=== PATIENT | female | born 1965 | race Caucasian/White ===

== ENCOUNTER 2016-11-29 10:24 | Emergency (ER) | payer OTHER ==
[2016-11-29] MEDS ORDERED: Zofran 4 MG/2 ML VIAL IV ONE (10:46)
[2016-11-29] MEDS ORDERED: Hydromorphone 1 mg/ml Ampule IV ONE (10:46)
[2016-11-29] MEDS ORDERED: Sodium Chloride 0.9% 1000 ML 1,000 ML IV STA (10:46)
[2016-11-29] MEDS ORDERED: PROTONIX 40 MG IV IV ONE ×2 (10:46→10:52)
[2016-11-29] MEDS ORDERED: Hydromorphone 1 mg/ml Ampule ONE (10:52)
[2016-11-29] MEDS ORDERED: Zofran 4 MG/2 ML VIAL ONE (10:52)
[2016-11-29] MEDS ORDERED: Sodium Chloride 0.9% 1000 ML 1,000 ML ONE (10:52)
--- NOTE | 2016-11-29 10:54 | ERPHSYRPT ---
- History of Present Illness Time Seen by Provider: 11/29/16 10:43 Historian: patient Exam Limitations: clinical condition Patient Subjective Stated Complaint: abd pain Triage Nursing Assessment: epigastric abd pain with vomiting since 0800 this morning. radiating pain around upper abd. dry heaving and nausea. 'orange' bm this am. no food since last night. 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 urinary urgency with little output for past week--went to dr and urine test fine , followup scheduled for sunday Physician History: PATIENT WITH HISTORY OF GALL STONES COMPLAINS OF SEVERE EPIGASTRIC PAINS ASSOCIATED WITH FREQUENT EMESIS AND RADIATION OF PAIN TO HER BACK, ONSET AT 1AM , ATE FAST FOOD LAST NIGHT. DENIES FEVER CHILLS, AND DIARRHEA. PATIENT ALSO COMPLAINS OF URGENCY, HAD EPISODES DYSURIA LAST WEEK. Timing/Duration: today Activities at Onset: none Quality: sharpness Abdominal Pain Onset Location: epigastric, flank Pain Radiation: back Severity of Pain-Max: moderate Severity of Pain-Current: moderate Modifying Factors: Improves With: nothing, vomiting Associated Symptoms: heartburn, loss of appetite, nausea, vomiting Previous symptoms: same symptoms as today (YEARS AGO WITH GALLSTONES) Allergies/Adverse Reactions: iron dextran complex Allergy (Verified 11/29/16 10:33) meperidine [From Demerol] Allergy (Verified 11/29/16 10:33) methylprednisolone [From Medrol] Allergy (Verified 11/29/16 10:33) morphine Allergy (Verified 11/29/16 10:33) Home Medications: Carvedilol 3.125 mg [Coreg 3.125 MG] 3.125 mg PO DAILY 11/29/16 [History] Eszopiclone [Lunesta] 1 mg PO HS 11/29/16 [History] Hydrochlorothiazide 25 mg [hydroDIURIL 25 MG] 37.5 mg PO DAILY 11/29/16 [ History] Liraglutide [Victoza 2-Jeremiah] 1.8 mg SQ DAILY 11/29/16 [History] Solifenacin Succinate [Vesicare] 10 mg PO DAILY 11/29/16 [History] Hx Tetanus, Diphtheria Vaccination/Date Given: Yes Hx Influenza Vaccination/Date Given: No Hx Pneumococcal Vaccination/Date Given: No Immunizations Up to Date: Yes - Review of Systems Constitutional: No Fever, No Chills Eyes: No Symptoms Ears, Nose, & Throat: No Symptoms Respiratory: No Symptoms, No Cough, No Dyspnea Cardiac: No Symptoms, No Chest Pain, No Edema, No Syncope Abdominal/Gastrointestinal: Abdominal Pain, Nausea, Vomiting, No Diarrhea Genitourinary Symptoms: Dysuria, Urgency, Flank Pain Musculoskeletal: No Symptoms, No Back Pain, No Neck Pain Skin: No Symptoms, No Rash Neurological: No Symptoms, No Dizziness, No Focal Weakness, No Sensory Changes Psychological: No Symptoms Endocrine: No Symptoms All Other Systems: Reviewed and Negative - Past Medical History Pertinent Past Medical History: Yes Cardiac History: Hypertension Endocrine Medical History: Diabetes Type II GI Medical History: Ulcer Female Reproductive Disorders: Endometriosis Other Medical History: gallstones - Past Surgical History Past Surgical History: Yes Cardiac: Cardiac Catheterization Gastrointestinal: Appendectomy Other Surgical History: rt shoulder. knee. ablasion uterine - Social History Smoking Status: Never smoker Exposure to second hand smoke: No Drug Use: none Patient Lives Alone: No Significant Family History: no pertinent family hx - Nursing Vital Signs Nursing Vital Signs: Initial Vital Signs Temperature 98.7 F Temperature Source Oral Pulse Rate 80 Respiratory Rate 18 Blood Pressure [Right Arm] 127/75 Pain Intensity 0 - Physical Exam General Appearance: moderate distress Eye Exam: PERRL/EOMI, eyes nml inspection Ears, Nose, Throat Exam: normal ENT inspection, pharynx normal, moist mucous membranes Neck Exam: normal inspection, non-tender, supple, full range of motion Respiratory Exam: normal breath sounds, lungs clear, No respiratory distress Cardiovascular Exam: regular rate/rhythm, normal heart sounds Gastrointestinal/Abdomen Exam: soft, normal bowel sounds, tenderness (MARKED EPIGASTRIC AND RUQ TENDERNESS), No mass Back Exam: normal inspection, normal range of motion, CVA tenderness (BILATERAL CVA TENDERNESS), No vertebral tenderness Extremity Exam: normal inspection, normal range of motion, pelvis stable Neurologic Exam: alert, oriented x 3, cooperative, normal mood/affect, nml cerebellar function, sensation nml, No motor deficits Skin Exam: normal color, warm, dry Lymphatic Exam: adenopathy SpO2 Interpretation: normal SpO2: 98 Oxygen Delivery: Room Air - Course EKG Interpreted by Me: RATE, Sinus Rhythm (RATE 80), NORMAL AXIS Ordered Tests: Active Orders 24 hr Category Date Time Status Clean Catch Urine Specimen STAT Care 11/29/16 10:46 Active EKG-ER Only STAT Care 11/29/16 10:46 Active IV Insertion STAT Care 11/29/16 10:46 Active ABDOMEN AND PELVIS W CONTRAST [CT] Stat Exams 11/29/16 10:47 Completed AMYLASE Stat Lab 11/29/16 10:45 Completed BLOOD CULTURE Stat Lab 11/29/16 10:45 Ordered CBC W DIFF Stat Lab 11/29/16 10:45 Completed CMP Stat Lab 11/29/16 10:45 Completed HCG,QUALITATIVE URINE Stat Lab 11/29/16 10:58 Completed LIPASE Stat Lab 11/29/16 10:45 Completed Manual Differential NC Stat Lab 11/29/16 10:45 Completed TROPONIN Stat Lab 11/29/16 10:45 Completed UA W/ MICROSCOPIC Stat Lab 11/29/16 10:47 Completed Medication Summary Discontinued Medications Generic Name Dose Route Start Last Admin Trade Name Freq PRN Reason Stop Dose Admin Hydromorphone HCl 2 mg 11/29/16 10:46 11/29/16 11:05 Dilaudid 1 Mg/Ml Injection IV 11/29/16 10:47 2 mg STAT ONE Administration Hydromorphone HCl Confirm 11/29/16 10:52 Dilaudid 1 Mg/Ml Injection Administered 11/29/16 10:53 Dose 2 mg .ROUTE .STK-MED ONE Sodium Chloride 1,000 mls @ 999 mls/hr 11/29/16 10:46 11/29/16 10:59 Sodium Chloride 0.9% 1000 Ml IV 11/29/16 11:46 999 mls/hr .Q1H1M STA Administration Sodium Chloride Confirm 11/29/16 10:52 Sodium Chloride 0.9% 1000 Ml Administered 11/29/16 10:53 Dose 1,000 mls @ ud .ROUTE .STK-MED ONE Ondansetron HCl 4 mg 11/29/16 10:46 11/29/16 11:03 Zofran 4 Mg/2 Ml Vial IV 11/29/16 10:47 4 mg STAT ONE Administration Ondansetron HCl Confirm 11/29/16 10:52 Zofran 4 Mg/2 Ml Vial Administered 11/29/16 10:53 Dose 4 mg .ROUTE .STK-MED ONE Pantoprazole Sodium 40 mg 11/29/16 10:46 11/29/16 10:59 Protonix 40 Mg Iv IV 11/29/16 10:47 40 mg STAT ONE Administration Pantoprazole Sodium Confirm 11/29/16 10:52 Protonix 40 Mg Iv Administered 11/29/16 10:53 Dose 40 mg IV .STK-MED ONE Lab/Rad Data: Laboratory Result Diagrams 11/29/16 10:45 11/29/16 10:45 Laboratory Results 11/29/16 11/29/16 11/29/16 Range/Units 10:58 10:47 10:45 WBC (4.0-10.5) K/mm3 RBC (4.1-5.4) M/mm3 Hgb (12.0-16.0) gm/dl Hct (35-47) % MCV (78-100) fl MCH (26-32) pg MCHC (32-36) g/dl RDW (11.5-14.0) % Plt Count (150-450) K/mm3 MPV (6-9.5) fl Segmented Neutrophils (36.0-66.0) % Band Neutrophils (0.0-2.0) % Lymphocytes (Manual) (24-44) % Monocytes (Manual) (0.0-12.0) % Differential Comment Platelet Estimate (NORMAL) Sodium 139 (136-145) mEq/L Potassium 3.9 (3.5-5.1) mEq/L Chloride 104 (98-107) mEq/L Carbon Dioxide 23.3 (21-32) mEq/L Anion Gap 15.1 H (5-15) MEQ/L BUN 19 (9-20) mg/dL Creatinine 0.73 (0.55-1.30) mg/dl Estimated GFR > 60 ML/MIN Glucose 106 (70-110) MG/DL Calcium 8.7 (8.5-10.1) mg/dL Total Bilirubin 0.8 (0.2-1.0) mg/dL AST 25 (15-37) U/L ALT 26 (12-78) U/L Alkaline Phosphatase 71 (46-116) U/L Troponin I < 0.017 (0.000-0.056) ng/ml Serum Total Protein 7.0 (6.4-8.2) gm/dL Albumin 3.5 (3.4-5.0) g/dL Amylase 77 (25-115) U/L Lipase 139 (73-393) U/L Ur Collection Type VOID Urine Color YELLOW (YELLOW) Urine Appearance CLEAR (CLEAR) Urine pH 7.5 (5-6) Ur Specific [place] 1.020 (1.005-1.025) Urine Protein TRACE (Negative) Urine Glucose (UA) NEGATIVE (NEGATIVE) mg/dL Urine Ketones NEGATIVE (NEGATIVE) Urine Nitrite NEGATIVE (NEGATIVE) Urine Bilirubin NEGATIVE (NEGATIVE) Urine Urobilinogen 0.2 (0-1) mg/dL Urine WBC (Auto) NEGATIVE (NEGATIVE) Urine RBC (Auto) NEGATIVE (0-5) Srikanth/ul Urine Microscopic WBC 0-2 (0-5) /HPF Ur Epithelial Cells MODERATE (FEW) /HPF Urine Bacteria FEW (NEGATIVE) /HPF Urine HCG, Qual NEGATIVE (Negative) Specimen Received 11-29-16 1100 11/29/16 Range/Units 10:45 WBC 8.7 (4.0-10.5) K/mm3 RBC 5.18 (4.1-5.4) M/mm3 Hgb 15.2 (12.0-16.0) gm/dl Hct 45.9 (35-47) % MCV 88.6 (78-100) fl MCH 29.3 (26-32) pg MCHC 33.1 (32-36) g/dl RDW 12.9 (11.5-14.0) % Plt Count 211 (150-450) K/mm3 MPV 10.8 H (6-9.5) fl Segmented Neutrophils 90 H (36.0-66.0) % Band Neutrophils 6 H (0.0-2.0) % Lymphocytes (Manual) 2 L (24-44) % Monocytes (Manual) 2 (0.0-12.0) % Differential Comment NORMAL Platelet Estimate NORMAL (NORMAL) Sodium (136-145) mEq/L Potassium (3.5-5.1) mEq/L Chloride (98-107) mEq/L Carbon Dioxide (21-32) mEq/L Anion Gap (5-15) MEQ/L BUN (9-20) mg/dL Creatinine (0.55-1.30) mg/dl Estimated GFR ML/MIN Glucose (70-110) MG/DL Calcium (8.5-10.1) mg/dL Total Bilirubin (0.2-1.0) mg/dL AST (15-37) U/L ALT (12-78) U/L Alkaline Phosphatase (46-116) U/L Troponin I (0.000-0.056) ng/ml Serum Total Protein (6.4-8.2) gm/dL Albumin (3.4-5.0) g/dL Amylase (25-115) U/L Lipase (73-393) U/L Ur Collection Type Urine Color (YELLOW) Urine Appearance (CLEAR) Urine pH (5-6) Ur Specific [place] (1.005-1.025) Urine Protein (Negative) Urine Glucose (UA) (NEGATIVE) mg/dL Urine Ketones (NEGATIVE) Urine Nitrite (NEGATIVE) Urine Bilirubin (NEGATIVE) Urine Urobilinogen (0-1) mg/dL Urine WBC (Auto) (NEGATIVE) Urine RBC (Auto) (0-5) Srikanth/ul Urine Microscopic WBC (0-5) /HPF Ur Epithelial Cells (FEW) /HPF Urine Bacteria (NEGATIVE) /HPF Urine HCG, Qual (Negative) Specimen Received - Progress Progress: improved Progress Note: 11/29/16 10:54 PATIENT ADMINISTERED BOLUS NORMAL SALINE 1 LITER/HR, ZOFRAN 4MG/ PROTONIX 40MG/ DILAUDID 2MG IV Counseled pt/family regarding: lab results, diagnosis, need for follow-up, rad results - Departure Time of Disposition: 12:35 Departure Disposition: Home Clinical Impression: ACUTE ABDOMINAL PAIN Condition: Stable Critical Care Time: No Referrals: ELIUD CARDENAS [Primary Care Provider] - Additional Instructions: FOLLOWUP WITH YOUR FAMILY PHYSICIAN SCHEDULE. NORCO 10/325 EVERY 4 HOURS FOR PAIN NEEDED. ZOFRAN 4MG EVERY 4 HOURS FOR NAUSEA. PEPCID 20MG TWICE DAILY FOR 2 WEEKS. RETURN TO EMERGENCY FOR INCREASING PAIN OR VOMITING. Prescriptions: Hydrocodone/APAP 10/325 mg [[place] 10/325 MG Tablet] 1 tab PO Q4H PRN PRN # 15 tablet PRN Reason: Pain Ondansetron [Zofran Odt] 4 mg PO Q4HPRN PRN #6 tab.rapdis PRN Reason: Nausea Famotidine 20 mg [Pepcid 20 MG] 20 mg PO BID #30 tablet
[2016-11-29 11:02] LABS: Mean Cell Volume 88.6 fl (78-100); Mean Corpuscular Hemoglobin 29.3 pg (26-32); Mean Platelet Volume 10.8 fl (6-9.5); Platelet Count 211 K/mm3 (150-450); Red Blood Count 5.18 M/mm3 (4.1-5.4); Red Cell Distribution Width 12.9 % (11.5-14.0); White Blood Count 8.7 K/mm3 (4.0-10.5)
[2016-11-29 11:18] LABS: ALBUMIN 3.5 g/dL (3.4-5.0); ALKALINE PHOSPHATASE 71 U/L (46-116); ANION GAP 15.1 MEQ/L (5-15); BILIRUBIN,TOTAL 0.8 mg/dL (0.2-1.0); BLOOD UREA NITROGEN 19 mg/dL (9-20); CHLORIDE 104 mEq/L (98-107); Carbon Dioxide 23.3 mEq/L (21-32); Glucose 106 MG/DL (70-110); LIPASE 139 U/L (73-393); Potassium 3.9 mEq/L (3.5-5.1); SGOT/AST 25 U/L (15-37); SGPT/ALT 26 U/L (12-78); SODIUM 139 mEq/L (136-145)
[2016-11-29 11:19] LABS: TROPONIN < 0.017 ng/ml (0.000-0.056)
[2016-11-29 11:22] LABS: BAND 6 % (0.0-2.0); Platelet Estimate NORMAL (NORMAL); Total Cells Counted 100
[2016-11-29 11:22] LABS: COMPLETE URINE MICROSCOPIC? YES; Collection Type VOID; Ph 7.5 (5-6)
[2016-11-29 11:24] LABS: Bacteria FEW /HPF (NEGATIVE); Epithelial Cells MODERATE /HPF (FEW); WBC 0-2 /HPF (0-5)
--- NOTE | 2016-11-29 12:03 | XRAY ---
Indication: Abdominal pain. Multiple contiguous axial images obtained through the abdomen and pelvis using 80 cc Isovue 370 contrast only as ordered. Comparison: August 05, 2011. Lung bases are clear. Heart is not enlarged. Noncontrasted stomach and bowel loops appear nonobstructed. Stomach, small bowel, and right hemicolon are now mildly fluid distended with some fluid leveling, ileus versus gastroenterocolitis. Again previous appendectomy and cholecystectomy. There is now tiny cul-de-sac fluid presumed ruptured/leaking cyst. There is again a 3.2 cm right lobe hepatic lesion. It demonstrates enhancement characteristics favoring hemangioma. Remaining liver, pancreas, spleen, adrenal glands, kidneys, ureters, bladder, uterus, and aorta appear unremarkable. No pathologic retroperitoneal lymphadenopathy. Osseous structures intact again with mild degenerative changes throughout the spine and levorotoscoliosis centered at the L1-L2 level. Impression: 1. Fluid distended stomach and bowel loops with fluid leveling. Rule out ileus versus gastroenterocolitis. 2. Tiny cul-de-sac fluid presumed physiologic from ruptured/leaking cyst. 3. Stable right lobe hepatic hemangioma. CT DI 15.96
[2016-11-29 12:36] VITALS: BP 128/72; PULSE 92; O2SAT 100
== END 2016-11-29 12:44 | disposition home or self-care (01) ==
LOC: ED 10:24
DX: R10.13 Epigastric pain (principal); R10.10 Upper abdominal pain, unspecified; R39.15 Urgency of urination; R11.2 Nausea with vomiting, unspecified; I10 Essential (primary) hypertension; E11.9 Type 2 diabetes mellitus without complications; Z79.899 Other long term (current) drug therapy; Z79.4 Long term (current) use of insulin
CPT/HCPCS: 36000; 36415; 74177; 80053; 81000; 82150; 83690; 84484; 84703; 85025; 87040; 93005; 96360; 96374; 96375; 99284; J1170; J2405

== ENCOUNTER 2020-01-29 16:49 | Emergency (ER) | payer OTHER ==
[2020-01-29 17:09] VITALS: BP 168/84; PULSE 85; O2SAT 96
[2020-01-29] MEDS ORDERED: TORAdol 30 mg Injection IM ONE (17:18)
--- NOTE | 2020-01-29 17:47 | ERPHSYRPT ---
- History of Present Illness Time Seen by Provider: 01/29/20 17:00 Source: patient Exam Limitations: no limitations Patient Subjective Stated Complaint: pt twisted right ankle and fell, she co pain to right ankle she states she is unable to bear wt, Triage Nursing Assessment: pt alert, arrived per wc, able to get self to bed, tenderness to right ankle,foot pink Physician History: 54 years old female presented in the ER with chief complaint of right ankle pain. Patient reported prior to arrival she was coming down, missed a step and bent her ankle inward causing moderate to severe intensity sharp shooting pain, getting worse with movements at ankle and better with being still associated with swelling of lateral ankle. She is unable to put any weight on right foot/ ankle. No pain in the foot. No injury anywhere else. Allergies/Adverse Reactions: iron dextran complex Allergy (Verified 01/29/20 17:10) meperidine [From Demerol] Allergy (Verified 01/29/20 17:10) methylprednisolone [From Medrol] Allergy (Verified 01/29/20 17:10) morphine Allergy (Verified 01/29/20 17:10) Home Medications: Carvedilol 3.125 mg [Coreg 3.125 MG] 3.125 mg PO DAILY 11/29/16 [History] Eszopiclone [Lunesta] 1 mg PO HS 11/29/16 [History] Hydrochlorothiazide 25 mg [hydroDIURIL 25 MG] 37.5 mg PO DAILY 11/29/16 [ History] Liraglutide [Victoza 2-Jeremiah] 1.8 mg SQ DAILY 11/29/16 [History] Solifenacin Succinate [Vesicare] 10 mg PO DAILY 11/29/16 [History] Hx Tetanus, Diphtheria Vaccination/Date Given: Yes Hx Influenza Vaccination/Date Given: Yes Hx Pneumococcal Vaccination/Date Given: No Immunizations Up to Date: Yes Travel Risk - International Travel Have you traveled outside of the country in past 3 weeks: No Have you or anyone close to you been diagnosed with or: No Do your reside in a community with a known COVID-19 case?: Yes If Yes where:: [place] - Coronavirus Screening Has patient experienced Coronavirus symptoms: No - Review of Systems Constitutional: No Symptoms Eyes: No Symptoms Ears, Nose, & Throat: No Symptoms Respiratory: No Symptoms Cardiac: No Symptoms Abdominal/Gastrointestinal: No Symptoms Musculoskeletal: Injury, Joint Pain Skin: No Symptoms Neurological: No Symptoms Psychological: No Symptoms - Past Medical History Pertinent Past Medical History: Yes Cardiac History: Hypertension Endocrine Medical History: Diabetes Type II GI Medical History: Ulcer Female Reproductive Disorders: Endometriosis Other Medical History: gallstones - Past Surgical History Past Surgical History: Yes Cardiac: Cardiac Catheterization Gastrointestinal: Appendectomy Other Surgical History: rt shoulder. knee. ablasion uterine - Social History Smoking Status: Never smoker Exposure to second hand smoke: No Drug Use: none Patient Lives Alone: No Significant Family History: no pertinent family hx - Female History Hx Last Menstrual Period: post Hx Now: No - Nursing Vital Signs Nursing Vital Signs: Initial Vital Signs Temperature 99.3 F 01/29/20 17:02 Pulse Rate 85 01/29/20 17:02 Respiratory Rate 16 01/29/20 17:02 Blood Pressure 168/84 01/29/20 17:02 O2 Sat by Pulse Oximetry 96 01/29/20 17:02 Pain Scale Pain Intensity 8 - Physical Exam General Appearance: no apparent distress Eyes, Ears, Nose, Throat Exam: normal ENT inspection Neck Exam: normal inspection Cardiovascular/Respiratory Exam: normal breath sounds, regular rate/rhythm Legs Exam: bilateral leg: non-tender, normal inspection, normal range of motion Knees Exam: bilateral knee: non-tender, normal inspection, normal range of motion Ankle Exam: right ankle: bone tenderness (Lateral malleolus), limited range of motion, pain, soft tissue tenderness, swelling, left ankle: non-tender, normal inspection, normal range of motion Foot Exam: bilateral foot: non-tender, normal inspection, normal range of motion Neuro/Tendon Exam: normal sensation Mental Status Exam: alert, oriented x 3 Skin Exam: normal color, warm SpO2 Interpretation: normal SpO2: 96 O2 Delivery: Room Air - Course Nursing assessment & vital signs reviewed: Yes Ordered Tests: Active Orders 24 hr Category Date Time Status ANKLE (3 VIEWS) Stat Exams 01/29/20 17:28 Taken Medication Summary Discontinued Medications Generic Name Dose Route Start Last Admin Trade Name Freq PRN Reason Stop Dose Admin Ketorolac Tromethamine 30 mg 01/29/20 17:18 01/29/20 18:10 Toradol 30 Mg Injection IM 01/29/20 17:19 30 mg STAT ONE Administration Ketorolac Tromethamine Confirm 01/29/20 18:07 Toradol 30 Mg Injection Administered 01/29/20 18:08 Dose 30 mg .ROUTE .STK-MED ONE - Progress Progress: improved, pain not gone completely Progress Note: 01/29/20 17:50 She is given Toradol for pain. X-rays showed questionable avulsion fracture, placed in a boot, crutches and pain medications to take as needed. Recommended outpatient orthopedic surgery follow-up. Counseled pt/family regarding: diagnosis, need for follow-up, rad results - Departure Departure Disposition: Home Clinical Impression: Avulsion fracture of lateral malleolus Qualifiers: Encounter type: initial encounter Fracture type: closed Laterality: right Qualified Code(s): S82.61XA - Displaced fracture of lateral malleolus of right fibula, initial encounter for closed fracture Condition: Good Critical Care Time: No Referrals: ELIUD CARDENAS [Primary Care Provider] - Follow Up with PCP/3 days FLORINDA EASLEY NP [NON-STAFF PHY W/O PRIVILEGES] - (In the morning) Instructions: Ankle Fracture (DC) Additional Instructions: No weightbearing. Follow-up with primary care and orthopedic surgery for reevaluation. Take pain medications as needed. Return to ER for any worsening. Prescriptions: Hydrocodone/APAP 5-325 Tab^^^ [[place] 5-325 Tablet^^^] 1 tab PO Q6HPRN PRN #10 tablet MDD 6 PRN Reason: Pain
[2020-01-29] MEDS ORDERED: TORAdol 30 mg Injection ONE (18:07)
--- NOTE | 2020-01-30 08:22 | XRAY ---
Indication: Lateral ankle pain. Comparison: None 3 views of the right ankle demonstrates tiny curvilinear lateral malleolus tip calcification with mild soft tissue swelling, possible avulsion fracture in the right clinical setting. Incidental tiny posterior heel spur and small cuboid accessory ossicle. No other bony, articular, or soft tissue abnormalities.
== END 2020-01-29 18:36 | disposition home or self-care (01) ==
LOC: ED 16:49
DX: S82.61XA Displaced fracture of lateral malleolus of right fibula, initial encounter for closed fracture (principal); X50.9XXA Other and unspecified overexertion or strenuous movements or postures, initial encounter; Y93.9 Activity, unspecified; Y92.9 Unspecified place or not applicable; M25.571 Pain in right ankle and joints of right foot; I10 Essential (primary) hypertension; E11.9 Type 2 diabetes mellitus without complications; N80.9 Endometriosis, unspecified
CPT/HCPCS: 73610; 96372; 99284; J1885

== ENCOUNTER 2020-06-03 15:36 | Emergency (ER) | payer OTHER ==
--- NOTE | 2020-06-03 15:38 | ERPHSYRPT ---
- History of Present Illness Time Seen by Provider: 06/03/20 15:38 Source: patient Exam Limitations: no limitations Physician History: This is a diabetic 55-year-old white female with hypertension who slipped and fell on her stairs the day before yesterday. Patient's pain has been persistent primarily in the right foot and ankle. However she is also has pain in her right lower leg right knee and lower femur on the right side. Patient states when she fell the leg went underneath her knee and a flexed position. Pain is not improved and therefore patient presents to the emergency department with right lower extremity pain. Patient did ambulate to her room but was limping mildly. Occurred: other (The day before yesterday) Reason for Fall: slipped Injuries/Pain Location: lower extremity (Right lower extremity) Loss of Consciousness: no loss of consciousness Quality: aching Severity of Pain-Max: mild Severity of Pain-Current: mild Modifying Factors: Improves With: movement Associated Symptoms (Fall): denies symptoms Allergies/Adverse Reactions: iron dextran complex Allergy (Verified 01/29/20 17:10) meperidine [From Demerol] Allergy (Verified 01/29/20 17:10) methylprednisolone [From Medrol] Allergy (Verified 01/29/20 17:10) morphine Allergy (Verified 01/29/20 17:10) Home Medications: Carvedilol 3.125 mg [Coreg 3.125 MG] 3.125 mg PO DAILY 11/29/16 [History] Eszopiclone [Lunesta] 1 mg PO HS 11/29/16 [History] Hydrochlorothiazide 25 mg [hydroDIURIL 25 MG] 37.5 mg PO DAILY 11/29/16 [History] Liraglutide [Victoza 2-Jeremiah] 1.8 mg SQ DAILY 11/29/16 [History] Solifenacin Succinate [Vesicare] 10 mg PO DAILY 11/29/16 [History] Hx Tetanus, Diphtheria Vaccination/Date Given: Yes Hx Influenza Vaccination/Date Given: Yes Hx Pneumococcal Vaccination/Date Given: No Travel Risk - International Travel Have you traveled outside of the country in past 3 weeks: No - Coronavirus Screening Are you exhibiting any of the following symptoms?: No Close contact with a COVID-19 positive Pt in past 14-21 Days: No - Review of Systems Constitutional: No Symptoms Eyes: No Symptoms Ears, Nose, & Throat: No Symptoms Respiratory: No Symptoms Cardiac: No Symptoms Abdominal/Gastrointestinal: No Symptoms Genitourinary Symptoms: No Symptoms Musculoskeletal: Fall, Injury Skin: No Symptoms Neurological: No Symptoms Psychological: No Symptoms Endocrine: No Symptoms Hematologic/Lymphatic: No Symptoms Immunological/Allergic: No Symptoms All Other Systems: Reviewed and Negative - Past Medical History Pertinent Past Medical History: Yes Neurological History: No Pertinent History ENT History: No Pertinent History Cardiac History: Hypertension Respiratory History: No Pertinent History Endocrine Medical History: Diabetes Type II Musculoskeletal History: No Pertinent History GI Medical History: No Pertinent History, Ulcer History: No Pertinent History Psycho-Social History: No Pertinent History Female Reproductive Disorders: Endometriosis Other Medical History: gallstones - Past Surgical History Past Surgical History: Yes Neuro Surgical History: No Pertinent History Cardiac: Cardiac Catheterization Respiratory: No Pertinent History Gastrointestinal: Appendectomy Genitourinary: No Pertinent History Musculoskeletal: No Pertinent History Female Surgical History: No Pertinent History Other Surgical History: rt shoulder. knee. ablasion uterine - Social History Smoking Status: Never smoker Exposure to second hand smoke: No Drug Use: none Patient Lives Alone: No Significant Family History: no pertinent family hx - Nursing Vital Signs Nursing Vital Signs: Initial Vital Signs Temperature 98.6 F 06/03/20 15:46 Pulse Rate 76 06/03/20 15:46 Respiratory Rate 20 06/03/20 15:46 Blood Pressure 122/78 06/03/20 15:46 O2 Sat by Pulse Oximetry 99 06/03/20 15:46 Pain Scale Pain Intensity 6 Ordered Tests: Active Orders 24 hr Category Date Time Status ANKLE (3 VIEWS) Stat Exams 06/03/20 15:59 Completed FEMUR Stat Exams 06/03/20 15:59 Completed FOOT (MINIMUM 3 VIEWS) Stat Exams 06/03/20 15:59 Completed KNEE (1 OR 2 VIEW) Stat Exams 06/03/20 15:59 Completed LOWER LEG Stat Exams 06/03/20 15:59 Completed - Progress Progress: unchanged, pain not gone completely, re-examined Progress Note: 06/03/20 16:47 X-ray of right femur reveals no acute fracture or dislocation X-ray of right knee reveals no acute fracture or dislocation X-ray of right lower leg reveals no acute fracture or dislocation X-ray of right ankle reveals no acute fracture dislocation X-ray of right foot reveals no acute fracture or dislocation Counseled pt/family regarding: need for follow-up, rad results - Departure Departure Disposition: Home Clinical Impression: Sprain of right ankle, Right foot injury Condition: Stable Critical Care Time: No Referrals: ELIUD CARDENAS [Primary Care Provider] - Additional Instructions: Use Tylenol and ibuprofen if not allergic for pain. Ice pack to painful areas 3 times a day for the next 48 hours. Follow-up with your primary care physician or [facility] for persistent symptoms. Wear Darnell wrap for comfort.
[2020-06-03 15:51] VITALS: BP 122/78; PULSE 76; O2SAT 99
--- NOTE | 2020-06-03 16:33 | XRAY ---
Indication: Pain following fall. Impression: January 29, 2020. 3 view right ankle demonstrates moderate soft tissue swelling. Stable tiny lateral malleolus tip ossification either developmental versus old injury and stable tiny posterior heel spur. Remaining ankle unremarkable.
--- NOTE | 2020-06-03 16:36 | XRAY ---
Indication: Pain following fall. Comparison: None 2 view right lower leg demonstrates tiny anterior soft tissue calcified granulomas and tiny spurring of the patella/posterior calcaneus. No other bony, articular, or soft tissue abnormalities.
--- NOTE | 2020-06-03 16:36 | XRAY ---
Indication: Pain following fall. Impression: No 2 view right femur demonstrates tiny patella spurring. No other bony, articular, or soft tissue abnormalities.
--- NOTE | 2020-06-03 16:38 | XRAY ---
Indication: Pain following fall. Comparison: None 2 view right knee demonstrates tiny patella spurring and tiny soft tissue calcified granulomas anterior lower leg. No other bony, articular, or soft tissue abnormalities.
--- NOTE | 2020-06-03 16:38 | XRAY ---
Indication: Pain following fall. Impression: No 3 nonweightbearing views right foot demonstrates tiny talonavicular/cuboid accessory ossicles and tiny posterior heel spur. No other bony, articular, or soft tissue abnormalities.
== END 2020-06-03 17:02 | disposition home or self-care (01) ==
LOC: ED 15:36
DX: S93.401A Sprain of unspecified ligament of right ankle, initial encounter (principal); W01.0XXA Fall on same level from slipping, tripping and stumbling without subsequent striking against object, initial encounter; Y93.89 Activity, other specified; Y92.89 Other specified places as the place of occurrence of the external cause; I10 Essential (primary) hypertension; S99.921A Unspecified injury of right foot, initial encounter
CPT/HCPCS: 73552; 73560; 73590; 73610; 73630; 99283

== ENCOUNTER 2020-08-06 21:15 | Emergency (ER) | payer OTHER ==
--- NOTE | 2020-08-06 21:19 | ERPHSYRPT ---
- History of Present Illness Time Seen by Provider: 08/06/20 21:18 Source: patient Exam Limitations: no limitations Physician History: This is a 55-year-old overweight white female who began having left flank pain yesterday and was seen by her primary care doctor in [facility]. A CAT scan of the abdomen pelvis was performed yesterday. Patient states the results showed inflammation and swelling in the urinary bladder. Patient was given an injection of Toradol which helped her pain. Her urinalysis yesterday showed hematuria but no infection per her report. Patient has been taking ibuprofen [id number] since yesterday. The left flank pain was significant this evening and patient did not receive any prescriptions for moderate to severe pain which she is experiencing now. Patient was told to go to the emergency department for pain relief. Patient has an appointment to see a urologist Sunday morning, 08/09/2020, at 8 AM Timing/Duration: yesterday Activites at Onset: none Quality: aching Onset Location: left flank Pain Radiation: left flank Severity of Pain-Max: moderate Severity of Pain-Current: moderate Prior abdominal problems: none Sexual intercourse history: non-contributory Modifying Factors: Improves With: movement Associated Symptoms: denies symptoms, urinary frequency Allergies/Adverse Reactions: iron dextran complex Allergy (Verified 08/06/20 21:34) meperidine [From Demerol] Allergy (Verified 08/06/20 21:34) methylprednisolone [From Medrol] Allergy (Verified 08/06/20 21:34) morphine Allergy (Verified 08/06/20 21:34) Home Medications: Carvedilol 3.125 mg [Coreg 3.125 MG] 3.125 mg PO BID 11/29/16 [History] Hydrochlorothiazide 25 mg [hydroDIURIL 25 MG] 12.5 mg PO DAILY 11/29/16 [History] Estrogen,Con/M-Progest Acet [Prempro 0.625-2.5 mg Tablet] 1 each PO DAILY 08/06/20 [History] Fluoxetine HCl 10 mg [Prozac 10 mg] 5 mg PO DAILY 08/06/20 [History] Gabapentin 300 mg PO DAILY 08/06/20 [History] Mirabegron [Myrbetriq] 50 mg PO DAILY 08/06/20 [History] PANTOPRAZOLE 40 mg Tablet [Protonix 40MG Tablet] 40 mg PO QAM 08/06/20 [History] Potassium Chloride 10 Meq Tab* [Klor Con 10 MEQ] 10 meq PO DAILY 08/06/20 [History] Zolpidem Tartrate 10 mg [Ambien 10 MG] 10 mg PO HS 08/06/20 [History] Hx Tetanus, Diphtheria Vaccination/Date Given: Yes Hx Influenza Vaccination/Date Given: Yes Hx Pneumococcal Vaccination/Date Given: No Travel Risk - International Travel Have you traveled outside of the country in past 3 weeks: No - Coronavirus Screening Are you exhibiting any of the following symptoms?: No Close contact with a COVID-19 positive Pt in past 14-21 Days: No - Review of Systems Constitutional: No Symptoms Eyes: No Symptoms Ears, Nose, & Throat: No Symptoms Respiratory: No Symptoms Cardiac: No Symptoms Abdominal/Gastrointestinal: No Symptoms Genitourinary Symptoms: Frequency, Flank Pain Musculoskeletal: No Symptoms (Left) Skin: No Symptoms Neurological: No Symptoms Psychological: No Symptoms Endocrine: No Symptoms Hematologic/Lymphatic: No Symptoms Immunological/Allergic: No Symptoms All Other Systems: Reviewed and Negative - Past Medical History Pertinent Past Medical History: Yes Neurological History: No Pertinent History ENT History: No Pertinent History Cardiac History: Hypertension Respiratory History: No Pertinent History Endocrine Medical History: Diabetes Type II Musculoskeletal History: No Pertinent History GI Medical History: No Pertinent History, Ulcer History: No Pertinent History Psycho-Social History: No Pertinent History Female Reproductive Disorders: Endometriosis Other Medical History: gallstones - Past Surgical History Past Surgical History: Yes Neuro Surgical History: No Pertinent History Cardiac: Cardiac Catheterization Respiratory: No Pertinent History Gastrointestinal: Appendectomy Genitourinary: No Pertinent History Musculoskeletal: No Pertinent History Female Surgical History: No Pertinent History Other Surgical History: rt shoulder. knee. ablasion uterine - Social History Smoking Status: Never smoker Exposure to second hand smoke: No Drug Use: none Patient Lives Alone: No Significant Family History: no pertinent family hx - Nursing Vital Signs Nursing Vital Signs: Initial Vital Signs Temperature 98.3 F 08/06/20 21:24 Pulse Rate 85 08/06/20 21:24 Respiratory Rate 20 08/06/20 21:24 Blood Pressure 179/121 08/06/20 21:24 O2 Sat by Pulse Oximetry 100 08/06/20 21:24 Pain Scale Pain Intensity 10 - Physical Exam General Appearance: no apparent distress, alert, anxiety Eye Exam: PERRL/EOMI, eyes nml inspection Ears, Nose, Throat Exam: normal ENT inspection, moist mucous membranes Neck Exam: normal inspection, non-tender, supple, full range of motion Respiratory Exam: normal breath sounds, lungs clear, airway intact, No chest tenderness, No respiratory distress Gastrointestinal/Abdomen Exam: soft, normal bowel sounds, No tenderness, No guarding Pelvic Exam: not done Rectal Exam: not done Extremity Exam: normal inspection, normal range of motion Neurologic Exam: alert, oriented x 3, cooperative, 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 tested, normal mood/affect, nml cerebellar function, nml station & gait, sensation nml Skin Exam: normal color, warm, dry Lymphatic Exam: No adenopathy SpO2 Interpretation: normal O2 Delivery: Room Air - Course Nursing assessment & vital signs reviewed: No Ordered Tests: Active Orders 24 hr Category Date Time Status IV Insertion STAT Care 08/06/20 21:33 Active UA W/RFX UR CULTURE Stat Lab 08/06/20 21:41 Results Medication Summary Discontinued Medications Generic Name Dose Route Start Last Admin Trade Name Freq PRN Reason Stop Dose Admin Hydrocodone Bitart/Acetaminophen 1 tab 08/06/20 22:12 08/06/20 22:23 [place] 5/325 Mg PO 08/06/20 22:13 1 tab STAT ONE Administration Hydrocodone Bitart/Acetaminophen Confirm 08/06/20 22:19 [place] 5/325 Mg Administered 08/06/20 22:20 Dose 1 tab .ROUTE .STK-MED ONE Ketorolac Tromethamine 30 mg 08/06/20 22:13 08/06/20 22:22 Toradol 30 Mg Injection IV 08/06/20 22:14 30 mg STAT ONE Administration Ketorolac Tromethamine Confirm 08/06/20 22:18 Toradol 30 Mg Injection Administered 08/06/20 22:19 Dose 30 mg .ROUTE .STK-MED ONE Ondansetron HCl 4 mg 08/06/20 22:12 08/06/20 22:22 Zofran 4 Mg/2 Ml Vial IV 08/06/20 22:13 4 mg STAT ONE Administration Ondansetron HCl Confirm 08/06/20 22:18 Zofran 4 Mg/2 Ml Vial Administered 08/06/20 22:19 Dose 4 mg .ROUTE .STK-MED ONE Lab/Rad Data: Laboratory Results 08/06/20 Range/Units 21:41 Urine Color COLORLESS (YELLOW) Urine Appearance CLEAR (CLEAR) Urine pH 7.0 (5-6) Ur Specific [place] 1.001 (1.005-1.025) Urine Protein NEGATIVE (Negative) Urine Ketones NEGATIVE (NEGATIVE) Urine Blood MODERATE (0-5) Srikanth/ul Urine Nitrite NEGATIVE (NEGATIVE) Urine Bilirubin NEGATIVE (NEGATIVE) Urine Urobilinogen NEGATIVE (0-1) mg/dL Ur Leukocyte Esterase NEGATIVE (NEGATIVE) Urine WBC (Auto) Pending Urine RBC (Auto) NONE (0-2) /HPF U Epithel Cells (Auto) NONE (FEW) /HPF Urine Bacteria (Auto) NONE SEEN (NEGATIVE) /HPF Urine Mucus (Auto) SLIGHT (NEGATIVE) /HPF Urine Culture Reflexed NO (NO) Urine Glucose NEGATIVE (NEGATIVE) mg/dL - Progress Progress: improved, re-examined Air Movement: good Progress Note: 08/06/20 22:13 Patient states she does not have a true allergy to [place]. It makes her nausea elana. Blood Culture(s) Obtained: No Antibiotics given: No Counseled pt/family regarding: lab results, diagnosis, need for follow-up - Departure Departure Disposition: Home Clinical Impression: Left flank pain, Hematuria Condition: Stable Critical Care Time: No Referrals: NELLA BOSS MD [Primary Care Provider] - Additional Instructions: Continue your ibuprofen 600 mg orally with food 3 times a day. Take your Zofran antinausea medicine approximately half hour prior to [place] tablet. Keep your urology appointment that you have scheduled on 08/09/2020 at 8 AM. Prescriptions: Hydrocodone/APAP 5/325 [[place] 5/325 mg] 1 each PO Q8H PRN PRN #7 tablet MDD 3 PRN Reason: Pain Ondansetron HCl [Zofran] 4 mg PO TID PRN #10 tablet PRN Reason: Nausea/Vomiting
[2020-08-06 21:34] VITALS: O2SAT 100
[2020-08-06] MEDS ORDERED: NORCO 5/325 MG PO ONE (22:12)
[2020-08-06] MEDS ORDERED: Zofran 4 MG/2 ML VIAL IV ONE (22:12)
[2020-08-06] MEDS ORDERED: TORAdol 30 mg Injection IV ONE (22:13)
[2020-08-06] MEDS ORDERED: Zofran 4 MG/2 ML VIAL ONE (22:18)
[2020-08-06] MEDS ORDERED: TORAdol 30 mg Injection ONE (22:18)
[2020-08-06] MEDS ORDERED: NORCO 5/325 MG ONE (22:19)
[2020-08-06 23:07] VITALS: BP 151/96; PULSE 69
== END 2020-08-06 23:07 | disposition home or self-care (01) ==
LOC: ED 21:15
DX: R10.9 Unspecified abdominal pain (principal); R31.9 Hematuria, unspecified; Z79.899 Other long term (current) drug therapy; I10 Essential (primary) hypertension; E11.9 Type 2 diabetes mellitus without complications
CPT/HCPCS: 36000; 81001; 96374; 96375; 99284; J1885; J2405; A9270-GY

== ENCOUNTER 2022-03-09 06:15 | Emergency (ER) | payer OTHER ==
--- NOTE | 2022-03-09 06:32 | ERPHSYRPT ---
<KEYON CAMPBELL - Last Filed: 03/09/22 07:06> - History of Present Illness Time Seen by Provider: 03/09/22 06:30 Historian: patient Exam Limitations: no limitations Physician History: Patient is a 56-year-old female presents to our ED for evaluation of heart palpitations chest pressure dizziness and near syncope. Patient states symptoms occurred early this morning at approximately 3 AM. Patient was asleep and awoke to heart palpitations. Patient felt dizzy and presyncopal. However no syncopal episodes occurred. Patient states she has a history of tachycardia. 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 Patient states she has had her TSH checked multiple times. Patient's sheet sewer advised her to come to our ED if she experiences any bout of tachycardia. No associated nausea or vomiting. No diarrhea. No rash. No fever. No prem chest pain however patient describes a chest pressure. Patient measured her heart rate on her apple watch and the rates range from 150-70. No pathologic rates of 160+ were observed. Patient currently feels well. No palpitations or chest pain occurring at this time. Significant other at bedside. They voiced no other complaints or concerns at this time. Timing/Duration: today Activities at Onset: none Quality: pressure Location: substernal Chest Pain Radiation: no radiation Severity of Pain-Max: moderate Severity of Pain-Current: mild Modifying Factors: Improves With: nothing Associated Symptoms: palpitations, dizziness (Near syncope and diaphoresis), No hurts to breathe Prior Chest Pain/Cardiac Workup: no prior chest pain Nitro Today/Relief: no nitro taken today Aspirin Treatment Today: no aspirin today Allergies/Adverse Reactions: iron dextran complex Allergy (Verified 03/09/22 06:35) meperidine [From Demerol] Allergy (Verified 03/09/22 06:35) methylprednisolone [From Medrol] Allergy (Verified 03/09/22 06:35) morphine Allergy (Verified 03/09/22 06:35) Home Medications: Carvedilol 3.125 mg [Coreg 3.125 MG] 3.125 mg PO BID 11/29/16 [History] Hydrochlorothiazide 25 mg [hydroDIURIL 25 MG] 12.5 mg PO DAILY 11/29/16 [History] Estrogen,Con/M-Progest Acet [Prempro 0.625-2.5 mg Tablet] 1 each PO DAILY 08/06/20 [History] Fluoxetine HCl 10 mg [Prozac 10 mg] 5 mg PO DAILY 08/06/20 [History] Gabapentin 300 mg PO DAILY 08/06/20 [History] Mirabegron [Myrbetriq] 50 mg PO DAILY 08/06/20 [History] PANTOPRAZOLE 40 mg Tablet [Protonix 40MG Tablet] 40 mg PO QAM 08/06/20 [History] Potassium Chloride 10 Meq Tab* [Klor Con 10 MEQ] 10 meq PO DAILY 08/06/20 [History] Zolpidem Tartrate 10 mg [Ambien 10 MG] 10 mg PO HS 08/06/20 [History] Hx Tetanus, Diphtheria Vaccination/Date Given: Yes Hx Influenza Vaccination/Date Given: Yes Hx Pneumococcal Vaccination/Date Given: No - Review of Systems Constitutional: No Symptoms, No Fever, No Chills Eyes: No Symptoms Ears, Nose, & Throat: No Symptoms Respiratory: No Symptoms, No Cough, No Dyspnea Cardiac: No Symptoms, No Chest Pain, No Edema, No Syncope Abdominal/Gastrointestinal: No Symptoms, No Abdominal Pain, No Nausea, No Vomiting, No Diarrhea Genitourinary Symptoms: No Symptoms, No Dysuria Musculoskeletal: No Symptoms, No Back Pain, No Neck Pain Skin: No Symptoms, No Rash Neurological: No Symptoms, No Dizziness, No Focal Weakness, No Sensory Changes Psychological: No Symptoms Endocrine: No Symptoms Hematologic/Lymphatic: No Symptoms Immunological/Allergic: No Symptoms All Other Systems: Reviewed and Negative - Past Medical History Pertinent Past Medical History: Yes Neurological History: No Pertinent History ENT History: No Pertinent History Cardiac History: Hypertension Respiratory History: No Pertinent History Endocrine Medical History: Diabetes Type II Musculoskeletal History: No Pertinent History GI Medical History: No Pertinent History, Ulcer History: No Pertinent History Psycho-Social History: No Pertinent History Female Reproductive Disorders: Endometriosis Other Medical History: gallstones - Past Surgical History Past Surgical History: Yes Neuro Surgical History: No Pertinent History Cardiac: Cardiac Catheterization Respiratory: No Pertinent History Gastrointestinal: Appendectomy Genitourinary: No Pertinent History Musculoskeletal: No Pertinent History Female Surgical History: No Pertinent History Other Surgical History: rt shoulder. knee. ablasion uterine - Social History Smoking Status: Never smoker Exposure to second hand smoke: No Drug Use: none Patient Lives Alone: No Significant Family History: no pertinent family hx - Physical Exam General Appearance: no apparent distress, alert Eye Exam: PERRL/EOMI, eyes nml inspection Ears, Nose, Throat Exam: normal ENT inspection, TMs normal, pharynx normal, moist mucous membranes Neck Exam: normal inspection, non-tender, supple, full range of motion Respiratory Exam: normal breath sounds, lungs clear, airway intact, No respiratory distress Cardiovascular Exam: regular rate/rhythm, normal heart sounds, normal peripheral pulses Gastrointestinal/Abdomen Exam: soft, normal bowel sounds, No tenderness, No mass Back Exam: normal inspection, normal range of motion, No CVA tenderness, No vertebral tenderness Extremity Exam: normal inspection, normal range of motion Neurologic Exam: alert, oriented x 3, cooperative, 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 Normal cardiac silhouette. Intact bony thorax. No soft tissue abnormalities) - Progress Progress: improved Air Movement: good Progress Note: D-dimer positive. CTA chest ordered. Chest x-ray clear. CBC essentially unremarkable. Chemistry pending. It is currently the change of shift. Patient endorsed to Dr. Cobb will follow-up on pending imaging and laboratory studies and make final disposition. Patient reassessed at change of shift. She remains asymptomatic. Vitals are stable. Heart rate is 82 with a normal sinus rhythm. Blood pressure 95/71. Portions of this note were created with voice recognition technology. There may be grammatical, spelling, punctuation or sound alike errors 03/09/22 07:06 Blood Culture(s) Obtained: No Antibiotics given: No Counseled pt/family regarding: lab results, diagnosis, rad results - Departure Clinical Impression: Heart palpitations, Diaphoresis, Near syncope, NSTEMI (non-ST elevated myocardial infarction) Condition: Stable Critical Care Time: No Referrals: NELLA BOSS MD [Primary Care Provider] - Follow up/PCP as directed <ANCANANCY - Last Filed: 03/09/22 09:56> - Nursing Vital Signs Nursing Vital Signs: Initial Vital Signs O2 Sat by Pulse Oximetry 97 03/09/22 06:25 Pain Scale Pain Intensity 3 Ordered Tests: Active Orders 24 hr Category Date Time Status Sash Finisher STAT Care 03/09/22 06:25 Active EKG-ER Only STAT Care 03/09/22 06:24 Active IV Insertion STAT Care 03/09/22 06:24 Active Pulse Oximetry (ED) STAT Care 03/09/22 06:24 Active CHEST 1 VIEW (PORTABLE) Stat Exams 03/09/22 06:25 Completed CHEST WITH CONTRAST [CT] Stat Exams 03/09/22 07:04 Ordered CBC W DIFF Stat Lab 03/09/22 06:25 Completed CMP Stat Lab 03/09/22 06:25 Completed D-DIMER QUANTITATIVE Stat Lab 03/09/22 06:25 Completed MAGNESIUM Stat Lab 03/09/22 06:25 Completed TROPONIN Q3H Lab 03/09/22 06:25 Completed TROPONIN Q3H Lab 03/09/22 09:30 Received TROPONIN Q3H Lab 03/09/22 12:30 Ordered TROPONIN Q3H Lab 03/09/22 15:30 Ordered TROPONIN Q3H Lab 03/09/22 18:30 Ordered UA W/RFX CULTURE Stat Lab 03/09/22 Ordered Medication Summary Discontinued Medications Generic Name Dose Route Start Last Admin Trade Name Freq PRN Reason Stop Dose Admin Aspirin 324 mg 03/09/22 08:55 03/09/22 09:24 Aspirin 81 Mg Tab.Chew PO 03/09/22 08:56 324 mg STAT ONE Administration Lab/Rad Data: Laboratory Result Diagrams 03/09/22 06:25 03/09/22 06:25 Laboratory Results 03/09/22 03/09/22 03/09/22 Range/Units 06:25 06:25 06:25 WBC (4.0-10.5) K/mm3 RBC (4.1-5.4) M/mm3 Hgb (12.0-16.0) gm/dl Hct (35-47) % MCV (78-100) fl MCH (26-32) pg MCHC (32-36) g/dl RDW (11.5-14.0) % Plt Count (150-450) K/mm3 MPV (7.5-11.0) fl Gran % (36.0-66.0) % Eos # (Auto) (0-0.5) Absolute Lymphs (auto) (1.0-4.6) Absolute Monos (auto) (0.0-1.3) Lymphocytes % (24.0-44.0) % Monocytes % (0.0-12.0) % Eosinophils % (0.00-5.0) % Basophils % (0.0-0.4) % Absolute Granulocytes (1.4-6.9) Basophils # (0-0.4) D-Dimer 862 H* (215-500) ng/mL Sodium 139 (137-145) mmol/L Potassium 3.5 (3.5-5.1) mmol/L Chloride 105 (98-107) mmol/L Carbon Dioxide 26 (22-30) mmol/L Anion Gap 11.9 (5-15) MEQ/L BUN 12 (7-17) mg/dL Creatinine 0.54 (0.52-1.04) mg/dL Estimated GFR > 60.0 ML/MIN Glucose 106 (74-106) mg/dL Calcium 8.9 (8.4-10.2) mg/dL Magnesium 1.9 (1.6-2.3) mg/dL Total Bilirubin 0.50 (0.2-1.3) mg/dL AST 21 (14-36) U/L ALT 12 (0-35) U/L Alkaline Phosphatase 70 (38-126) U/L Troponin I 0.071 H* (0.000-0.034) ng/mL Serum Total Protein 6.7 (6.3-8.2) g/dL Albumin 3.6 (3.5-5.0) g/dL 03/09/22 Range/Units 06:25 WBC 6.9 (4.0-10.5) K/mm3 RBC 4.68 (4.1-5.4) M/mm3 Hgb 13.6 (12.0-16.0) gm/dl Hct 41.4 (35-47) % MCV 88.5 (78-100) fl MCH 29.1 (26-32) pg MCHC 32.9 (32-36) g/dl RDW 12.8 (11.5-14.0) % Plt Count 260 (150-450) K/mm3 MPV 11.4 H (7.5-11.0) fl Gran % 60.3 (36.0-66.0) % Eos # (Auto) 0.15 (0-0.5) Absolute Lymphs (auto) 2.00 (1.0-4.6) Absolute Monos (auto) 0.58 (0.0-1.3) Lymphocytes % 28.8 (24.0-44.0) % Monocytes % 8.4 (0.0-12.0) % Eosinophils % 2.2 (0.00-5.0) % Basophils % 0.3 (0.0-0.4) % Absolute Granulocytes 4.19 (1.4-6.9) Basophils # 0.02 (0-0.4) D-Dimer (215-500) ng/mL Sodium (137-145) mmol/L Potassium (3.5-5.1) mmol/L Chloride (98-107) mmol/L Carbon Dioxide (22-30) mmol/L Anion Gap (5-15) MEQ/L BUN (7-17) mg/dL Creatinine (0.52-1.04) mg/dL Estimated GFR ML/MIN Glucose (74-106) mg/dL Calcium (8.4-10.2) mg/dL Magnesium (1.6-2.3) mg/dL Total Bilirubin (0.2-1.3) mg/dL AST (14-36) U/L ALT (0-35) U/L Alkaline Phosphatase (38-126) U/L Troponin I (0.000-0.034) ng/mL Serum Total Protein (6.3-8.2) g/dL Albumin (3.5-5.0) g/dL - Progress Progress: re-examined Progress Note: 03/09/22 09:50 Patient is checked out to me at shift change from Dr. Campbell with pending work-up. Patient presented with chest pressure tightness and palpitations waking her from sleep. Patient remained most of the time asymptomatic since in the ER. EKG showed sinus rhythm without any ST elevations. Initial troponin 0.071 and D-dimer is an 800. patient is getting CTA done soon. I believe elevated troponin is most probably secondary to rapid heart rate she earlier had. We will give her a dose of Lovenox. Do not have cardiology services available, d iscussed with at [facility] ER, reviewed history, work-up and patient is excepted for transfer. Plan discussed with patient and family who understand and agree with it. Discussed with : Other - Departure Departure Disposition: Transfer
[2022-03-09 07:04] LABS: Absolute Neutrophil Ct (ANC) 4.19 (1.4-6.9); Basophil (Absolute #) 0.02 (0-0.4); Eosinophil % 2.2 % (0.00-5.0); Eosinophil (Absolute #) 0.15 (0-0.5); Hematocrit 41.4 % (35-47); Hemoglobin 13.6 gm/dl (12.0-16.0); Lymphocytes % 28.8 % (24.0-44.0); Mean Cell Volume 88.5 fl (78-100); Mean Corpuscular Hemoglobin 29.1 pg (26-32); Mean Corpuscular Hgb Concent. 32.9 g/dl (32-36); Mean Platelet Volume 11.4 fl (7.5-11.0); Monocyte (Absolute #) 0.58 (0.0-1.3); Monocytes % 8.4 % (0.0-12.0); Neutrophil % 60.3 % (36.0-66.0); Platelet Count 260 K/mm3 (150-450); Red Blood Count 4.68 M/mm3 (4.1-5.4); Red Cell Distribution Width 12.8 % (11.5-14.0); White Blood Count 6.9 K/mm3 (4.0-10.5)
[2022-03-09 07:59] LABS: ALBUMIN 3.6 g/dL (3.5-5.0); ALKALINE PHOSPHATASE 70 U/L (38-126); ANION GAP 11.9 MEQ/L (5-15); BLOOD UREA NITROGEN 12 mg/dL (7-17); CHLORIDE 105 mmol/L (98-107); Calcium 8.9 mg/dL (8.4-10.2); Carbon Dioxide 26 mmol/L (22-30); Creatinine 1 0.54 mg/dL (0.52-1.04); EST GLOMERULAR FILTRATION RATE > 60.0 ML/MIN; Glucose 106 mg/dL (74-106); MAGNESIUM 1.9 mg/dL (1.6-2.3); Potassium 3.5 mmol/L (3.5-5.1); SGOT/AST 21 U/L (14-36); SGPT/ALT 12 U/L (0-35); SODIUM 139 mmol/L (137-145); Total Protein 6.7 g/dL (6.3-8.2)
[2022-03-09 08:19] VITALS: BP 102/70
[2022-03-09] MEDS ORDERED: BABY ASPIRIN 81 MG CHEW PO ONE (08:55)
--- NOTE | 2022-03-09 09:08 | XRAY ---
Indication: Chest pain. Comparison: December 06, 2017. Portable chest again demonstrates normal heart and lungs. Bony thorax intact again with incidental scoliosis. No new/acute findings.
[2022-03-09] MEDS ORDERED: ENOXAPARIN SODIUM SQ STA (10:00)
[2022-03-09] MEDS ORDERED: ENOXAPARIN SODIUM SQ ONE ×2 (10:37)
--- NOTE | 2022-03-09 10:45 | XRAY ---
Indication: Recurring tachycardia. Elevated d-dimer. Multiple contiguous axial images obtained through the chest using 100 cc Isovue 370 contrast and PE protocol. Comparison: None Good opacification of the pulmonary arteries to include the lobar and segmental branches. No pulmonary embolus. Heart not enlarged. Aorta is normal in course and caliber. No pathologic mediastinal/hilar lymphadenopathy. Small hiatal hernia. Lungs are inflated and clear. Bony thorax intact with partially visualized levorotoscoliosis centered mid lumbar spine. Limited upper abdomen demonstrates mild fatty liver, 2 cm right lobe hepatic cyst versus hemangioma, and cholecystectomy clips. Impression: 1. Normal CT chest pulmonary embolus exam. 2. Incidental small hiatal hernia, fatty liver, hepatic cyst versus hemangioma, and levorotoscoliosis.
[2022-03-09 10:55] VITALS: PULSE 77; O2SAT 96
== END 2022-03-09 10:50 | disposition short-term general hospital (02) ==
LOC: ED 06:15
DX: I21.4 Non-ST elevation (NSTEMI) myocardial infarction (principal); R00.2 Palpitations; R61 Generalized hyperhidrosis; R55 Syncope and collapse; R77.8 Other specified abnormalities of plasma proteins; R07.9 Chest pain, unspecified; I10 Essential (primary) hypertension; E11.9 Type 2 diabetes mellitus without complications; Z79.899 Other long term (current) drug therapy
CPT/HCPCS: 36000; 36415; 71045; 71260; 80053; 83735; 84484; 85025; 85379; 93005; 93041; 94760; 96372; 99285; J1650; A9270-GY

== ENCOUNTER 2023-02-05 20:00 | Emergency (ER) | payer OTHER ==
--- NOTE | 2023-02-05 20:49 | ERPHSYRPT ---
- History of Present Illness Time Seen by Provider: 02/05/23 20:49 Source: patient Exam Limitations: no limitations Physician History: This is a 57-year-old female who was walking to her car and looking at her phone when she stepped off a curb she did not realize was there and twisted her left ankle. She was having problems putting weight on the left foot because of the pain. She felt/heard a popping sensation Method of Injury: twisted Occurred: just prior to arrival Quality: aching Severity of Pain-Max: mild Severity of Pain-Current: mild (To moderate to moderate) Lower Extremities Pain: ankle: left Modifying Factors: Improves With: movement Associated Symptoms: popping sensation, other (Hurts to bear weight but can do so.) Allergies/Adverse Reactions: iron dextran complex Allergy (Severe, Verified 01/23/23 14:47) Tightness in Chest lisinopril Allergy (Severe, Verified 02/05/23 20:39) Anaphylactic Reaction meperidine [From Demerol] Allergy (Intermediate, Verified 01/23/23 14:47) Itching methylprednisolone [From Medrol] Allergy (Verified 03/09/22 06:35) morphine Allergy (Verified 03/09/22 06:35) Home Medications: Carvedilol 3.125 mg [Coreg 3.125 MG] 25 mg PO BID 11/29/16 [History] PANTOPRAZOLE 40 mg Tablet [Protonix 40MG Tablet] 40 mg PO BID 08/06/20 [History] Zolpidem Tartrate 10 mg [Ambien 10 MG] 10 mg PO HS 08/06/20 [History] Estradiol 1 mg [Estrace 1 mg] 1 mg PO DAILY 01/23/23 [History] Leflunomide 20 mg PO DAILY 01/23/23 [History] Medroxyprogesterone 2.5 mg [Provera 2.5 MG] 2.5 mg PO DAILY 01/23/23 [History] Metformin HCl 500 mg [Glucophage 500 MG] 500 mg PO BID 01/23/23 [History] Potassium Chloride [Klor-Con M10] 20 meq PO BID 01/23/23 [History] Solifenacin Succinate 5 mg PO DAILY 01/23/23 [History] Hx Tetanus, Diphtheria Vaccination/Date Given: Yes Hx Influenza Vaccination/Date Given: Yes Hx Pneumococcal Vaccination/Date Given: No Travel Risk - International Travel Have you traveled outside of the country in past 3 weeks: No - Coronavirus Screening Are you exhibiting any of the following symptoms?: No Close contact with a COVID-19 positive Pt in past 14-21 Days: No - Vaccine Status Have you recieved a Covid-19 vaccination: No - Review of Systems Constitutional: No Symptoms Eyes: No Symptoms Ears, Nose, & Throat: No Symptoms Respiratory: No Symptoms Cardiac: No Symptoms Abdominal/Gastrointestinal: No Symptoms Genitourinary Symptoms: No Symptoms Musculoskeletal: Injury (Left ankle) Skin: No Symptoms Neurological: No Symptoms Psychological: No Symptoms Endocrine: No Symptoms Hematologic/Lymphatic: No Symptoms Immunological/Allergic: No Symptoms All Other Systems: Reviewed and Negative - Past Medical History Pertinent Past Medical History: Yes Neurological History: No Pertinent History ENT History: No Pertinent History Cardiac History: Hypertension Respiratory History: COPD Endocrine Medical History: Diabetes Type II Musculoskeletal History: No Pertinent History GI Medical History: Ulcer History: No Pertinent History Psycho-Social History: No Pertinent History Female Reproductive Disorders: Endometriosis Other Medical History: gallstones, anemia - Past Surgical History Past Surgical History: Yes Neuro Surgical History: No Pertinent History Cardiac: Cardiac Catheterization Respiratory: No Pertinent History Gastrointestinal: Appendectomy Genitourinary: No Pertinent History Musculoskeletal: No Pertinent History Female Surgical History: No Pertinent History Other Surgical History: rt shoulder. knee. ablasion uterine - Social History Smoking Status: Never smoker Exposure to second hand smoke: No Drug Use: none Patient Lives Alone: No Significant Family History: no pertinent family hx - Nursing Vital Signs Nursing Vital Signs: Initial Vital Signs Temperature 99.7 F 02/05/23 20:42 Pulse Rate 77 02/05/23 20:42 Respiratory Rate 20 02/05/23 20:42 Blood Pressure 145/105 02/05/23 20:42 O2 Sat by Pulse Oximetry 99 02/05/23 20:42 Pain Scale Pain Intensity 5 - Physical Exam General Appearance: no apparent distress, alert Eyes, Ears, Nose, Throat Exam: normal ENT inspection, moist mucous membranes Neck Exam: normal inspection, non-tender, supple, full range of motion Cardiovascular/Respiratory Exam: chest non-tender, no respiratory distress Gastrointestinal/Abdominal Exam: non-tender Back Exam: normal inspection, normal range of motion, No CVA tenderness, No vertebral tenderness Hips Exam: bilateral: non-tender, normal inspection, normal range of motion Legs Exam: bilateral leg: non-tender, normal inspection, normal range of motion, no evidence of injury Knees Exam: bilateral knee: non-tender, normal inspection, normal range of motion, no evidence of injury Ankle Exam: right ankle: non-tender, normal inspection, no evidence of injury, left ankle: soft tissue tenderness (Lateral aspect), bilateral ankle: normal range of motion Foot Exam: bilateral foot: non-tender, normal inspection, normal range of motion, no evidence of injury Neuro/Tendon Exam: normal sensation, normal motor functions, normal tendon functions, no evidence tendon injury Mental Status Exam: alert, oriented x 3, cooperative Skin Exam: normal color, warm, dry SpO2 Interpretation: normal O2 Delivery: Room Air - Course Nursing assessment & vital signs reviewed: Yes Ordered Tests: Active Orders 24 hr Category Date Time Status ANKLE (3 VIEWS) Stat Exams 02/05/23 20:49 Taken - Progress Progress: pain not gone completely, re-examined Progress Note: 02/05/23 21:36 X-ray left ankle was interpreted by me. Patient left ankle x-ray shows no acute fracture or dislocation. This patient's medical issue is 1 of low complexity. The level of complexity and the work-up performed was based on review of the patient's past medical history, review of the patient's medication list, review of the patient's drug allergies, history of present illness and physical findings on examination. The patient only requires an x-ray of the left ankle. Patient has no other pain complaints. Counseled pt/family regarding: diagnosis, need for follow-up, rad results Medical Desision Making - Independent Historian Additional History obtained from: Spouse - Discussion of managment Agreed on:: Treatment plan, need for follow-up - Diagnostic Testing Diagnostic test were ordered, analyzed, and reviewed by me: Yes Radiological Interpretation: Interpreted by me - Risk of complications The pt has a mod risk of morbidity or mortality based on: Need for prescription drug management - Departure Departure Disposition: Home Clinical Impression: Left ankle sprain Condition: Stable Critical Care Time: No Referrals: NELLA BOSS MD [Primary Care Provider] - Follow up/PCP as directed Additional Instructions: Ice pack to left ankle 3 times a day for the next 48 hours. Keep the left foot and ankle elevated above the level of your heart. If pain persist beyond 48 hours, you may be seen at the [facility] orthopedic clinic Sunday through Sunday between 8 AM and 10 AM. This is a walk-in clinic and you do not need an appointment. If you have no contraindications, may also add ibuprofen 600 mg orally 3 times a day with food for 5 days. Wear Darnell bandage and use crutches for comfort.
[2023-02-05 20:57] VITALS: O2SAT 99
[2023-02-05] MEDS ORDERED: PERCOCET TABLET 5/325MG PO STA (21:41)
[2023-02-05] MEDS ORDERED: PERCOCET TABLET 5/325MG ONE (22:15)
[2023-02-05 22:32] VITALS: BP 138/88; PULSE 65
--- NOTE | 2023-02-06 09:01 | XRAY ---
Indication: Pain. Comparison: None 3 view left ankle demonstrates small plantar heel spur and minimal scattered vascular calcifications. No other bony, articular, or soft tissue abnormalities.
== END 2023-02-05 22:31 | disposition home or self-care (01) ==
LOC: ED 20:00
DX: S93.402A Sprain of unspecified ligament of left ankle, initial encounter (principal); X50.0XXA Overexertion from strenuous movement or load, initial encounter; Y93.01 Activity, walking, marching and hiking; I10 Essential (primary) hypertension; E11.9 Type 2 diabetes mellitus without complications; Z79.84 Long term (current) use of oral hypoglycemic drugs; Z79.899 Other long term (current) drug therapy; Z28.310 Unvaccinated for COVID-19
CPT/HCPCS: 73610; 99283; A9270-GY

== ENCOUNTER 2023-02-19 09:39 | Day surgery (SDC) | payer OTHER ==
--- NOTE | 2023-02-19 08:25 | HP ---
DATE OF SURGERY: 02/19/2023 HISTORY OF PRESENT ILLNESS: The patient is a 57-year-old with some bad reflux disease, four pills at a time. Last upper endoscopy years ago, needs upper endoscopy for evaluation to evaluate for gastritis, esophagitis, peptic ulcer disease or other etiology. PAST MEDICAL HISTORY: Allergic rhinitis, sinus infections, diabetes mellitus type II, chronic obstructive pulmonary disease, hypertension, anemia, asthma. She wears corrective lenses. PAST SURGICAL HISTORY: Appendectomy. Knee surgery. Cholecystectomy. Upper endoscopy in the past. MEDICATIONS: Magnesium oxide, medroxyprogesterone, Estrace, pantoprazole, carvedilol, metformin, zolpidem, gabapentin, leflunomide, solifenacin, Klor-Con. ALLERGIES: DEMEROL. DEXTRAN. LISINOPRIL. MORPHINE. FAMILY HISTORY: Negative for esophageal cancer. SOCIAL HISTORY: Former smoker. Occasional alcohol use denies abuse. REVIEW OF SYSTEMS: Fourteen systems reviewed. No chest pain or palpitations. Other systems negative or noncontributory as above and per preadmission questionnaire. PHYSICAL EXAMINATION: Height 5'6". BMI 36. GENERAL: No acute distress. HEENT: Sclerae nonicteric. EOMI. Oral mucous membranes moist. NECK: No JVD. CHEST: Equal excursion, nonlabored breathing. CVS: Regular rate and rhythm. ABDOMEN: Soft. No peritoneal signs. EXTREMITIES: No significant edema. NEURO: Alert, oriented, moving extremities symmetrically. PSYCH: Appropriate mood and affect. SKIN: Dry. IMPRESSION: Increased reflux, family history negative for esophageal cancer. The patient is in need of upper endoscopy to evaluate for peptic ulcer disease, esophagitis, gastritis or other etiology. Procedure was explained, shown the risk sheet, risks explained in detail the risk of bleeding or infection, risk of bowel injury or perforation, risk of missed or nondiagnosis or incomplete exam, possibly requiring barium swallow, other studies or procedures. General risk of anesthesia or sedation, risk of bowel prep but not limited to. Will proceed with outpatient EGD, possible biopsy as an outpatient.
[2023-02-19] MEDS ORDERED: Lactated Ringers 1,000 ML IV SCH (10:00)
[2023-02-19] MEDS ORDERED: Zofran 4 MG/2 ML VIAL ONE (10:25)
[2023-02-19] MEDS ORDERED: Zofran 4 MG/2 ML VIAL IV STA (10:35)
[2023-02-19] MEDS ORDERED: Xylocaine-Mpf 2% 5 Ml Vial ONE (13:14)
[2023-02-19] MEDS ORDERED: Versed 2 MG/2 ML Injection ONE (13:14)
[2023-02-19] MEDS ORDERED: DIPRIVAN 200 MG/20 ML IV ONE (13:14)
--- NOTE | 2023-02-19 13:51 | OP ---
SURGERY DATE/TIME: 02/20/2024 1322 PREOPERATIVE DIAGNOSIS: Increased reflux, need for upper endoscopy for further evaluation. POSTOPERATIVE DIAGNOSES: 1) Minimal gastritis and gastric erythema. 2) Small gastric polyp. 3) Very short segment of 3 mm or less distal esophagitis. 4) Slight hiatal weakness without any evidence of any large hiatal hernia. PROCEDURES: 1) EGD with cold biopsy of antrum for Helicobacter pylori. 2) Cold biopsy gastric polyp. 3) Cold biopsy distal esophagus to evaluate for short segment distal esophagitis. 4) Cold biopsy mid esophagus to evaluate for eosinophilic esophagitis. SURGEON: Dr. Domenico Ba. ANESTHESIA: MAC. ESTIMATED BLOOD LOSS: Minimal. INDICATIONS: As noted above. Risks and benefits explained in detail and not limited to and consent obtained. DESCRIPTION OF PROCEDURE AND FINDINGS: The patient is taken to the operating room. MAC anesthesia introduced. After official time out and no disagreement with planned procedure, a bite block positioned. Video gastroscope easily passed down the esophagus through the patent pylorus to the third portion of the duodenum. Third, second and first portion of the duodenum grossly unremarkable. Back in the stomach, she did have a little bit of gastric erythema consistent with possible early minimal gastritis. Cold biopsy is taken to evaluate for Helicobacter pylori given her symptom complaints. There were small polyps in the fundus, fundal gland polyp. Cold biopsy is taken. Otherwise on retroflex there is just a very trace weakness at the hiatus but there is no evidence of any visible large hiatal hernia. Scope is straightened. Gastroesophageal junction about 38 cm. There was about 3 mm area of small, little fingerlette of mostly healed erosion and some distal esophagitis. Good hemostasis noted. Cold biopsy taken. The remainder of the mucosa is grossly unremarkable. She did have some tertiary contracture of esophagus. Cold biopsy taken of mid esophagus to evaluate for eosinophilic esophagitis. Good hemostasis noted. No signs of any obvious masses or mucosal lesions. The scope is withdrawn. The patient tolerated the procedure well. Findings discussed with the family out in the waiting area.
[2023-02-19 14:12] VITALS: BP 160/94; PULSE 64; O2SAT 95
== END 2023-02-19 14:15 | disposition home or self-care (01) ==
LOC: SDC 09:39
PROVIDERS: ATTEND Surgery
DX: K20.90 Esophagitis, unspecified without bleeding (principal); K21.9 Gastro-esophageal reflux disease without esophagitis; E11.9 Type 2 diabetes mellitus without complications; K29.70 Gastritis, unspecified, without bleeding; K31.7 Polyp of stomach and duodenum
CPT/HCPCS: 82947; J2250; J2405; J2704